=== PATIENT | female | born 1985 | race Caucasian/White ===

== ENCOUNTER 2019-09-24 14:00 | Emergency (ER) | payer OTHER ==
[2019-09-24] MEDS ORDERED: Propofol 200 MG/20 ML SDV IV ONE (14:01)
--- NOTE | 2019-09-24 14:06 | EDM.PDOC ---
<Jermaine Hannon - Last Filed: 09/24/19 14:22> ED HPI GENERAL MEDICAL PROBLEM - General Chief Complaint: Lower Extremity Injury/Pain Stated Complaint: AMBULANCE Time Seen by Provider: 09/24/19 14:05 Source of Information: Reports: Patient, RN, RN Notes Reviewed History Limitations: Reports: No Limitations - History of Present Illness INITIAL COMMENTS - FREE TEXT/NARRATIVE: Patient was leaving home from her lunch break and slipped on ice landing on buttock. Denies hitting head, denies LOC. Right ankle has obvious deformity. CMS present, pulses present. Rates her pain at 8-10. Onset: Today, Sudden Duration: Hour(s): (2 hours) Location: Reports: Lower Extremity, Right Quality: Reports: Ache, Throbbing Severity: Moderate Improves with: Reports: Immobilization Worsens with: Reports: Movement Associated Symptoms: Reports: No Other Symptoms Vaginal Pain Score (Numeric/FACES): 8 Right Ankle Pain Score (Numeric/FACES): 10 - Related Data Allergies Allergy/AdvReac Type Severity Reaction Status Date / Time Sulfa (Sulfonamide Allergy Rash Verified 09/24/19 14:20 Antibiotics) radha Allergy Rash Uncoded 09/24/19 14:20 sensen dyes Allergy Rash Uncoded 09/24/19 14:20 Home Meds: Home Meds Citalopram Hydrobromide [Citalopram HBr] 20 mg PO DAILY 03/03/14 [History] diphenhydrAMINE [Benadryl] 25 mg PO BEDTIME PRN 03/03/14 [History] Omeprazole 20 mg PO DAILY 09/24/19 [History] Past Medical History - Past Health History Medical/Surgical History: Denies Medical/Surgical History Social & Family History - Living Situation & Occupation Occupation: Employed Review of Systems - Review of Systems Review Of Systems: See Below Constitutional: Reports: No Symptoms Respiratory: Reports: No Symptoms Cardiovascular: Reports: No Symptoms GI/Abdominal: Reports: No Symptoms Genitourinary: Reports: No Symptoms Musculoskeletal: Reports: Joint Pain (right ankle), Joint Swelling (right ankle) Skin: Reports: No Symptoms Neurological: Reports: No Symptoms Psychiatric: Reports: No Symptoms ED EXAM, GENERAL - Physical Exam Exam: See Below Exam Limited By: No Limitations General Appearance: Alert, WD/WN, No Apparent Distress Head: Atraumatic, Normocephalic Neck: Normal Inspection, Supple, Non-Tender, Full Range of Motion Respiratory/Chest: No Respiratory Distress, Lungs Clear, Normal Breath Sounds, No Accessory Muscle Use, Chest Non-Tender Cardiovascular: Normal Peripheral Pulses, Regular Rate, Rhythm, No Edema, No Gallop, No JVD, No Murmur, No Rub Peripheral Pulses: 2+: Posterior Tibial (R), Dorsalis Pedis (R) Back Exam: Normal Inspection, Full Range of Motion, NT Extremities: Joint Swelling, Leg Pain, Limited Range of Motion, Other (Right Ankle) Neurological: Alert, Oriented, CN II-XII Intact, Normal Cognition, Normal Gait, Normal Reflexes, No Motor/Sensory Deficits Psychiatric: Normal Affect, Normal Mood Skin Exam: Warm, Dry, Intact, Normal Color, No Rash Lymphatic: No Adenopathy Course - Vital Signs Last Recorded V/S: Last Vital Signs Temp 97.8 F 09/24/19 14:11 Pulse 57 L 09/24/19 16:08 Resp 17 09/24/19 16:08 BP 111/60 09/24/19 16:08 Pulse Ox 99 09/24/19 16:08 - Orders/Labs/Meds Orders: Active Orders 24 hr Category Date Time Status Peripheral IV Care [RC] . DIRECTED Care 09/24/19 14:16 Active Sodium Chloride 0.9% [Saline Flush] Med 09/24/19 14:16 Active 10 ml FLUSH ASDIRECTED PRN Peripheral IV Insertion Adult [OM.PC] Stat Oth 09/24/19 14:16 Ordered Medication Orders Sodium Chloride (Saline Flush) 10 ml FLUSH ASDIRECTED PRN PRN Reason: Keep Vein Open Last Admin: 09/24/19 14:42 Dose: 10 ml Meds: Medications Generic Name Dose Route Start Last Admin Trade Name Freq PRN Reason Stop Dose Admin Sodium Chloride 10 ml 09/24/19 14:16 09/24/19 14:42 Saline Flush FLUSH 10 ml ASDIRECTED PRN Administration Keep Vein Open Discontinued Medications Generic Name Dose Route Start Last Admin Trade Name Freq PRN Reason Stop Dose Admin Bupivacaine HCl 20 ml 09/24/19 14:43 09/24/19 15:47 Sensorcaine-Mpf 0.25% INJECT 09/24/19 14:44 10 ml ONETIME ONE Administration Fentanyl 100 mcg 09/24/19 14:16 09/24/19 14:42 Sublimaze IVPUSH 09/24/19 14:17 100 mcg ONETIME ONE Administration Sodium Chloride 1,000 mls @ 999 mls/hr 09/24/19 14:17 09/24/19 14:38 Normal Saline IV 09/24/19 15:17 999 mls/hr .BOLUS ONE Administration Lidocaine HCl 30 ml 09/24/19 14:44 09/24/19 15:47 Xylocaine-Mpf 1% INJECT 09/24/19 14:45 10 ml ONETIME ONE Administration Ondansetron HCl 4 mg 09/24/19 14:17 09/24/19 14:39 Zofran IV 09/24/19 14:18 4 mg ONETIME ONE Administration Departure - Departure Disposition: Home, Self-Care 01 Clinical Impression: Closed right trimalleolar fracture Qualifiers: Encounter type: initial encounter Qualified Code(s): S82.851A - Displaced trimalleolar fracture of right lower leg, initial encounter for closed fracture - Discharge Information Instructions: Closed Reduction for Ankle Fracture or Dislocation, Crutch Use, Adult Forms: ED Department Discharge Additional Instructions: Rx: Percocet (Oxycodone) 5mg/325mg Rx: Zofran 4mg Do not remove splint. Ice and elevate right ankle to reduce pain and swelling. No weight bearing on right foot. Call at 8:00 in the morning, and plan to see Dr. Martinez at [facility] tomorrow for evaluation and surgery planning. Call [phone] for the appointment. Return to ER if any further problems. Sepsis Event Note - Focused Exam Vital Signs: Vital Signs Temp Pulse Resp BP Pulse Ox 09/24/19 16:08 57 L 17 111/60 99 09/24/19 14:11 97.8 F 56 L 18 126/62 100 09/24/19 14:03 97.7 F 78 16 118/56 L 100 Date Exam was Performed: 09/24/19 Time Exam was Performed: 14:22 - My Orders Last 24 Hours: My Active Orders 09/24/19 14:16 Peripheral IV Care [RC] . DIRECTED Sodium Chloride 0.9% [Saline Flush] 10 ml FLUSH ASDIRECTED PRN Peripheral IV Insertion Adult [OM.PC] Stat - Assessment/Plan Last 24 Hours: My Active Orders 09/24/19 14:16 Peripheral IV Care [RC] . DIRECTED Sodium Chloride 0.9% [Saline Flush] 10 ml FLUSH ASDIRECTED PRN Peripheral IV Insertion Adult [OM.PC] Stat <Jammie Gonzalez - Last Filed: 09/24/19 16:35> ED HPI GENERAL MEDICAL PROBLEM - History of Present Illness INITIAL COMMENTS - FREE TEXT/NARRATIVE: Pt with Rt ankle deformity following a ground level fall on the ice. Denies any other injury. PMHx GERD, obesity, and anxiety/depression. No prior fx of right ankle. Quality: Reports: Ache Severity: Severe ED EXAM, GENERAL - Physical Exam Free Text/Narrative:: No change to exam as documented by the student. Extremities: Normal Capillary Refill, Other (Right Ankle obvious deformity, acutely tender). No: Increased Warmth, Mottled, Pallor, Redness ED TRAUMA EXTREMITY PROCEDURES - Joint Reduction Site: Other (Right ankle) Sedation: Conscious Sedation Pre-Procedure NV Status: Normal Post-Procedure NV Status: Normal Technique: Other (closed manual reduction) Number of Attempts: 1 Post-Reduction Imaging: Acceptably Reduced, Fracture Seen Joint Reduction Complications: No - Splinting Right Lower Extremity Splint Site: Rt lower extremity Pre-Procedure NV Status: Normal Post-Procedure NV Status: Normal Splint Material: Fiberglass Splint Design: Stirrup, Posterior Applied & Form Fitted By: Provider, Tech Provider Post-Splint Application NV Check: NV Status Normal, Good Position Complications: No Course - Radiology Interpretation Free Text/Narrative:: [facility] Final Radiology Report Call: [phone] assistance Online chat: [email or web address] Name: MALACHI BARON Age: 33Years F Date: 09/24/2019 SSN: -- : [id number] Study: XR ANKLE COMPLETE MIN 3 VIEWS RIGHT Requesting Physician: JAMMIE GONZALEZ Images: 3 Addl Studies: Provided Clinical History: Contrast: Contrast Medium: Contrast Amount: Contrast Method: CONFIDENTIALITY STATEMENT This report is intended only for use by the referring physician, and only in accordance with law. If you received this in error, call [phone]. Page 1 of 1 PROCEDURE INFORMATION: Exam: XR Right Ankle Exam date and time: 09/24/2019 2:05 PM Age: 33 years old Clinical indication: Injury or trauma; Fall; Initial encounter; Blunt trauma; Ankle; Right; Injury date: 09/24/2019 TECHNIQUE: Imaging protocol: XR Right ankle. Views: 3 or more views. COMPARISON: No relevant prior studies available. FINDINGS: Bones/joints: There is a transverse fracture across the distal shaft of the right fibula with a fracture of the posterior and lateral malleolus of the tibia. There is lateral and posterior displacement of the talus with respect to the tibia. Soft tissues: There is mild soft tissue swelling. IMPRESSION: Trimalleolar fracture dislocation of the right ankle. Thank you for allowing us to participate in the care of your patient. Dictated and Authenticated by: David Childs MD 09/24/2019 2:15 PM Central Time ([place] & [place]) [facility] Final Radiology Report Call: [phone] assistance Online chat: [email or web address] Name: MALACHI BARON Age: 33Years F Date: 09/24/2019 SSN: -- : [id number] Study: XR ANKLE 1 OR 2 VIEWS RIGHT Requesting Physician: JAMMIE GONZALEZ Images: 2 Addl Studies: Provided Clinical History: post-reduction right ankle Contrast: Contrast Medium: Contrast Amount: Contrast Method: CONFIDENTIALITY STATEMENT This report is intended only for use by the referring physician, and only in accordance with law. If you received this in error, call [phone]. Page 1 of 1 PROCEDURE INFORMATION: Exam: XR Right Ankle Exam date and time: 09/24/2019 3:26 PM Age: 33 years old Clinical indication: Other: Post-reduction; Additional info: Post-reduction right ankle TECHNIQUE: Imaging protocol: XR Right ankle. Views: 1 or 2 views. COMPARISON: CR Ankle Min 3V Rt 09/24/2019 2:05 PM FINDINGS: Bones/joints: There is continued mild lateral displacement of the talus with respect to the distal tibia but the alignment is much improved since the prior study. The alignment of the fibular fracture is nearanatomic. Soft tissues: Overlying cast material obscures fine bone detail. IMPRESSION: Improvement in the alignment of the fracture dislocation of the right ankle with continued mild lateral displacement of the talus with respect to the tibia. Thank you for allowing us to participate in the care of your patient. Dictated and Authenticated by: David Childs MD 09/24/2019 3:42 PM Central Time ([place] & [place]) - Re-Assessments/Exams Free Text/Narrative Re-Assessment/Exam: 09/24/19 16:[address] Martinez via [employer]. He advises to reduce the fx and sent postreduction x-rays to him. He finds the reduction to be well enough to have the pt f/u in clinic with him in the morning. Free Text/Narrative Re-Assessment/Exam: 09/24/19 16:30 See [employer] note for sedation details. Departure - Departure Time of Disposition: 16:31 Condition: Fair - Discharge Information *PRESCRIPTION DRUG MONITORING PROGRAM REVIEWED*: Not Applicable *COPY OF PRESCRIPTION DRUG MONITORING REPORT IN PATIENT KAYODE: Not Applicable Sepsis Event Note - Focused Exam Date Exam was Performed: 09/24/19 Time Exam was Performed: 16:22
[2019-09-24] MEDS ORDERED: Sodium Chloride 0.9% 10 ML Syringe FLUSH PRN (14:16)
[2019-09-24] MEDS ORDERED: fentaNYL 100 MCG/2 ML SDV IVPUSH ONE (14:16)
[2019-09-24] MEDS ORDERED: Sodium Chloride 0.9% 1,000 ML IV ONE (14:17)
[2019-09-24] MEDS ORDERED: Ondansetron 4 MG/2 ML SDV IV ONE (14:17)
[2019-09-24] MEDS ORDERED: Bupivacaine 0.25% 10 ML SDV INJECT ONE (14:43)
[2019-09-24] MEDS ORDERED: Lidocaine 1% 30 ML SDV INJECT ONE (14:44)
[2019-09-24 16:09] VITALS: BP 111/60; PULSE 57
== END 2019-09-24 16:50 | disposition home or self-care (01) ==
LOC: DL.ED 14:00
DX: S82.851A Displaced trimalleolar fracture of right lower leg, initial encounter for closed fracture (principal); Z88.2 Allergy status to sulfonamides; Z91.041 Radiographic dye allergy status; Z91.048 Other nonmedicinal substance allergy status; W00.0XXA Fall on same level due to ice and snow, initial encounter
CPT/HCPCS: 27818; 73600; 73610; 96361; 96374; 99152; 99283; J2001; J2405; J2704; J3010; J3490; J7030

== ENCOUNTER 2020-10-28 01:06 | Emergency (ER) | payer OTHER ==
[2020-10-28 01:44] VITALS: BP 137/71; PULSE 81
--- NOTE | 2020-10-28 01:54 | EDM.PDOC ---
ED HPI GENERAL MEDICAL PROBLEM - General Chief Complaint: Abdominal Pain Stated Complaint: LOWER RIGHT ABDOMINAL PAIN Time Seen by Provider: 10/28/20 01:40 Source of Information: Reports: Patient, RN, RN Notes Reviewed History Limitations: Reports: No Limitations - History of Present Illness INITIAL COMMENTS - FREE TEXT/NARRATIVE: Patient presents to the ED via personal vehicle with complaints of right flank pain that radiates into her RLQ. The patient states the pain began abruptly about two hours ago while she was laying in her bed. She characterizes the pain as a stiff and achy and notes it waxes and wanes in severity. She denies experiencing pain similar to this in the past. The patient reports she took Tums with no alleviation of symptoms. She denies fever, shaking chills, recent illness, palpitations, dyspepsia, vomiting, hematuria, diarrhea, melena, or hematochezia. She does attest to nausea with the pain and dysuria that radiates into her lower back. She denies inability to fully void. Her last bowl movement was this evening and she notes it was "normal" for her. She denies a history of kidney stones but reports she has been diagnosed with GERD after having a work-up to r/o gallstones. Patient reports a LMP of 10/20/20. Right Lower Back Pain Score (Numeric/FACES): 7 - Related Data Allergies Allergy/AdvReac Type Severity Reaction Status Date / Time Sulfa (Sulfonamide Allergy Rash Verified 10/28/20 01:44 Antibiotics) radha Allergy Rash Uncoded 10/28/20 01:44 sensen dyes Allergy Rash Uncoded 10/28/20 01:44 Home Meds: Home Meds Citalopram Hydrobromide [Citalopram HBr] 20 mg PO DAILY 03/03/14 [History] diphenhydrAMINE [Benadryl] 25 mg PO BEDTIME PRN 03/03/14 [History] Omeprazole 20 mg PO DAILY 09/24/19 [History] Past Medical History - Past Health History Medical/Surgical History: Denies Medical/Surgical History - Past Surgical History Musculoskeletal Surgical History: Reports: Other (See Below) Other Musculoskeletal Surgeries/Procedures:: right ankle surgery Social & Family History - Tobacco Use Tobacco Use Status *Q: Never Tobacco User Second Hand Smoke Exposure: No - Caffeine Use Caffeine Use: Reports: Soda, Tea - Alcohol Use Date of Last Drink: 10/07/20 - Recreational Drug Use Recreational Drug Use: No - Living Situation & Occupation Occupation: Employed ED ROS GENERAL - Review of Systems Review Of Systems: Comprehensive ROS is negative, except as noted in HPI. ED EXAM, RENAL/ - Physical Exam Exam: See Below Exam Limited By: No Limitations General Appearance: Alert, No Apparent Distress, Obese Throat/Mouth: Normal Inspection, Normal Voice, No Airway Compromise Head: Atraumatic, Normocephalic Respiratory/Chest: No Respiratory Distress, Lungs Clear, Normal Breath Sounds, No Accessory Muscle Use, Chest Non-Tender Cardiovascular: Normal Peripheral Pulses, Regular Rate, Rhythm, No Edema, No Gallop, No JVD, No Murmur, No Rub GI/Abdominal: Normal Bowel Sounds, Soft, Non-Tender, No Distention, No Abnormal Bruit, No Mass, Pelvis Stable. No: Guarding, Rigid, Rebound (Female) Exam: Deferred Rectal (Female) Exam: Deferred Back Exam: Normal Inspection, Full Range of Motion, Muscle Spasm. No: CVA Tenderness (L), CVA Tenderness (R), Paraspinal Tenderness, Vertebral Tenderness Extremities: Normal Inspection, Normal Range of Motion, Non-Tender, Normal Capillary Refill, No Pedal Edema Neurological: Alert, Oriented, CN II-XII Intact, Normal Cognition, Normal Gait, No Motor/Sensory Deficits Psychiatric: Normal Affect, Normal Mood Skin Exam: Warm, Dry, Intact, Normal Color, No Rash. No: Ecchymosis, Erythema, Jaundice, Mottled, Pallor, Petechiae Course - Vital Signs Last Recorded V/S: Last Vital Signs Temp 97.1 F 10/28/20 01:29 Pulse 81 10/28/20 01:29 Resp 18 10/28/20 01:29 BP 137/71 10/28/20 01:29 Pulse Ox 99 10/28/20 01:29 - Orders/Labs/Meds Labs: Laboratory Tests 10/28/20 10/28/20 10/28/20 Range/Units 01:28 01:28 01:37 WBC 8.4 (5.0-10.0) 10^3/uL RBC 4.47 (4.2-5.4) 10^6/uL Hgb 12.8 (12.0-16.0) g/dL Hct 38.7 (37.0-47.0) % MCV 86.6 (80-100) fL MCH 28.6 (27.0-34.0) pg MCHC 33.1 (33.0-35.0) g/dL Plt Count 235 (150-450) 10^3/uL Neut % (Auto) 66.6 (42.2-75.2) % Lymph % (Auto) 22.9 (20.5-50.1) % Dubois % (Auto) 7.7 (2-8) % Eos % (Auto) 2.4 (1.0-3.0) % Baso % (Auto) 0.4 (0.0-1.0) % Sodium (136-145) mmol/L Potassium (3.5-5.1) mmol/L Chloride (98-107) mmol/L Carbon Dioxide (21-32) mmol/L Anion Gap (7-13) mEq/L BUN (7-18) mg/dL Creatinine (0.55-1.02) mg/dL Est Cr Clr Drug Dosing mL/min Estimated GFR (MDRD) BUN/Creatinine Ratio (No establ ref range) Glucose (74-99) mg/dL Lactic Acid (0.4-2.0) mmol/L Calcium (8.5-10.1) mg/dL Magnesium (1.8-2.4) mg/dL Total Bilirubin (0.2-1.0) mg/dL AST (15-37) U/L ALT (14-59) U/L Alkaline Phosphatase (46-116) U/L C-Reactive Protein (0.0-0.9) mg/dL Total Protein (6.4-8.2) g/dL Albumin (3.4-5.0) g/dL Globulin Albumin/Globulin Ratio Amylase (25-115) U/L Lipase (73-393) U/L Urine Color Yellow (YELLOW) Urine Appearance Clear (CLEAR) Urine pH 7.0 (5.0-9.0) Ur Specific [place] 1.020 (1.005-1.030) Urine Protein Negative (NEGATIVE) Urine Glucose (UA) Negative (NEGATIVE) Urine Ketones Negative (NEGATIVE) Urine Occult Blood Negative (NEGATIVE) Urine Nitrite Negative (NEGATIVE) Urine Bilirubin Negative (NEGATIVE) Urine Urobilinogen 0.2 (0.2-1.0) mg/dL Ur Leukocyte Esterase Negative (NEGATIVE) Urine HCG, Qual Negative 10/28/20 10/28/20 Range/Units 01:37 01:37 WBC (5.0-10.0) 10^3/uL RBC (4.2-5.4) 10^6/uL Hgb (12.0-16.0) g/dL Hct (37.0-47.0) % MCV (80-100) fL MCH (27.0-34.0) pg MCHC (33.0-35.0) g/dL Plt Count (150-450) 10^3/uL Neut % (Auto) (42.2-75.2) % Lymph % (Auto) (20.5-50.1) % Dubois % (Auto) (2-8) % Eos % (Auto) (1.0-3.0) % Baso % (Auto) (0.0-1.0) % Sodium 142 (136-145) mmol/L Potassium 3.6 (3.5-5.1) mmol/L Chloride 102 (98-107) mmol/L Carbon Dioxide 33 H (21-32) mmol/L Anion Gap 10.6 (7-13) mEq/L BUN 14 (7-18) mg/dL Creatinine 0.78 (0.55-1.02) mg/dL Est Cr Clr Drug Dosing 93.34 mL/min Estimated GFR (MDRD) > 60 BUN/Creatinine Ratio 17.9 (No establ ref range) Glucose 93 (74-99) mg/dL Lactic Acid 0.8 (0.4-2.0) mmol/L Calcium 9.0 (8.5-10.1) mg/dL Magnesium 1.6 L (1.8-2.4) mg/dL Total Bilirubin 0.2 (0.2-1.0) mg/dL AST 11 L (15-37) U/L ALT 19 (14-59) U/L Alkaline Phosphatase 95 (46-116) U/L C-Reactive Protein 2.2 H (0.0-0.9) mg/dL Total Protein 7.5 (6.4-8.2) g/dL Albumin 3.4 (3.4-5.0) g/dL Globulin 4.1 Albumin/Globulin Ratio 0.8 Amylase 49 (25-115) U/L Lipase 122 (73-393) U/L Urine Color (YELLOW) Urine Appearance (CLEAR) Urine pH (5.0-9.0) Ur Specific [place] (1.005-1.030) Urine Protein (NEGATIVE) Urine Glucose (UA) (NEGATIVE) Urine Ketones (NEGATIVE) Urine Occult Blood (NEGATIVE) Urine Nitrite (NEGATIVE) Urine Bilirubin (NEGATIVE) Urine Urobilinogen (0.2-1.0) mg/dL Ur Leukocyte Esterase (NEGATIVE) Urine HCG, Qual - Re-Assessments/Exams Free Text/Narrative Re-Assessment/Exam: 10/28/20 UA unremarkable; no bacteria, nitrites, blood, or leukocyte esterase. CBC unremarkable for acute processes; no evidence of infection of anemia. Lipase and Amylase WNL. Hcg negative. Liver and kidney function WNL. Magnesium slightly low at 1.6, but electrolytes otherwise appropriate. Given lack of evidence for imaging, other than pain, will refrain at this time. Discussed findings of examination and lab work with patient and father. Will treat muscle spasm with Flexeril. Discussed red flag signs and symptoms which would warrant reexamination. Patient and father verbalized understanding and agreement with the plan of care. Departure - Departure Time of Disposition: 02:18 Disposition: Home, Self-Care 01 Condition: Good Clinical Impression: Muscle spasm, Back muscle spasm, Hypomagnesemia - Discharge Information *PRESCRIPTION DRUG MONITORING PROGRAM REVIEWED*: Not Applicable *COPY OF PRESCRIPTION DRUG MONITORING REPORT IN PATIENT KAYODE: Not Applicable Instructions: Muscle Cramps and Spasms, [id number] Forms: ED Department Discharge Additional Instructions: 1.) You may take ibuprofen (Motrin/Advil) 400mg every six hours, as pain persists. You may also take acetaminophen (Tylenol) 650mg every six hours, as pain persists. You may stagger these medications so you are taking a dose every three hours. 2.) Apply heat to the affected area for comfort. 3.) Follow up with your primary care provider in 2-3 if pain persists, or worsens. Sepsis Event Note (ED) - Evaluation Sepsis Screening Result: No Definite Risk - Focused Exam Vital Signs: Vital Signs Temp Pulse Resp BP Pulse Ox 10/28/20 01:29 97.1 F 81 18 137/71 99
[2020-10-28 02:01] LABS: ANION GAP 10.6 mEq/L (7-13); CHLORIDE,CL 102 mmol/L (98-107); SODIUM,NA 142 mmol/L (136-145)
[2020-10-28] MEDS ORDERED: Cyclobenzaprine 10 MG Tab PO ONE (02:18)
== END 2020-10-28 02:26 | disposition home or self-care (01) ==
LOC: DL.ED 01:06
DX: E83.42 Hypomagnesemia (principal); M62.830 Muscle spasm of back; Z88.2 Allergy status to sulfonamides; Z91.048 Other nonmedicinal substance allergy status; Z79.899 Other long term (current) drug therapy
CPT/HCPCS: 36415; 80053; 81003; 81025; 82150; 83605; 83690; 83735; 85025; 86140; 99284; A9270; 99283